=== PATIENT | female | born 1980 | race Caucasian/White ===

== ENCOUNTER 2021-03-28 12:59 | Emergency (ER) | payer OTHER ==
[~2021-03-28] VITALS: Ht 158.8 cm; Wt 84.4 kg
[2021-03-28 13:15] VITALS: BP 126/62
--- NOTE | 2021-03-28 13:25 | NUR ---
PATIENT AMBULATED TO BED 1.
--- NOTE | 2021-03-28 13:37 | NUR ---
41 Y/O FEMALE C/O EPIGASTRIC PAIN 02/24 DESCRIBES BURNING X 3 DAYS. DENIES FEVER/CHILLS. STATES +N/-V. ABD IS SOFT, ROUND, NON-TENDER, BOWEL SOUNDS ACTIVE X4, LAST BM 03/27/21. DENIES PMH NKA
--- NOTE | 2021-03-28 13:55 | NUR ---
DR. GOODMAN AT PT BEDSIDE FOR FURTHER EVALUATION.
--- NOTE | 2021-03-28 13:58 | NUR ---
RUBBER MIXER AT PT BEDSIDE.
[2021-03-28] MEDS ORDERED: FAMOTIDINE 20 MG TAB PO ONE (14:10)
[2021-03-28 14:17] LABS: BASOPHILS % (AUTO) 0.5 % (0.0-2.0); EOSINOPHILS # (AUTO) 0.2 K/uL (0-0.4); EOSINOPHILS % (AUTO) 1.9 % (0.0-4.0); HEMATOCRIT 39.7 % (36-48); HEMOGLOBIN 13.3 g/dL (12.0-16.0); LYMPHOCYTES # (AUTO) 2.2 K/uL (2.5-16.5); LYMPHOCYTES % (AUTO) 23.1 % (20.5-51.1); MEAN CORPUSCULAR HEMOGLOBIN 30 pg (27-31); MEAN CORPUSCULAR HGB CONC 34 g/dL (33-37); MEAN CORPUSCULAR VOLUME 88.9 fL (80-94); MONOCYTES # (AUTO) 0.8 K/uL (0.8-1.0); MONOCYTES % (AUTO) 8.7 % (1.7-9.3); NEUTROPHILS # (AUTO) 6.2 K/uL (1.8-7.7); NEUTROPHILS % (AUTO) 65.8 % (42.2-75.2); PLATELET COUNT (AUTO) 200 K/uL (140-450); RED BLOOD CELL COUNT(AUTO) 4.47 MIL/uL (4.20-5.40); RED CELL DISTRIBUTION WIDTH 13.5 % (11.6-13.7); WHITE BLOOD COUNT (AUTO) 9.4 K/uL (4.8-10.8)
--- NOTE | 2021-03-28 14:23 | NUR ---
US AT PT BEDSIDE.
[2021-03-28 14:35] LABS: ALBUMIN 3.9 g/dL (3.4-5.0); ANION GAP 11.6 (8-16); CARBON DIOXIDE 28.1 mmol/L (21-32); CREATININE 0.5 mg/dL (0.6-1.3); POTASSIUM 3.7 mmol/L (3.5-5.1); TOTAL BILIRUBIN 0.8 mg/dL (0.0-1.0)
[2021-03-28 15:03] LABS: APPEARANCE,URINE CLEAR (CLEAR); BILIRUBIN,URINE NEGATIVE (NEGATIVE); BLOOD, URINE NEGATIVE (NEGATIVE); COLOR,URINE YELLOW (YELLOW); LEUKOCYTE ESTERASE ,URINE NEGATIVE (NEGATIVE); NITRITE, URINE NEGATIVE (NEGATIVE); UGLUCOSE NEGATIVE (NEGATIVE)
[2021-03-28] MEDS ORDERED: FAMO-92 PO (15:13)
[2021-03-28] MEDS ORDERED: ACET-2619 PO (15:14)
[2021-03-28] MEDS ORDERED: ONDA-188 PO (15:14)
--- NOTE | 2021-03-28 15:15 | NUR ---
PT RESTING IN BED, VSS, WILL CONTINUE TO MONITOR.
[2021-03-28 15:21] VITALS: BP 120/74
--- NOTE | 2021-03-28 15:23 | NUR ---
Patient discharged with v/s stable. Written and verbal after care instructions given FOR ABD OAIN and explained. Patient alert, oriented and verbalized understanding of instructions. Ambulatory with steady gait. All questions addressed prior to discharge. ID band removed. Patient advised to follow up with PMD. Rx of PEPCID, TYNENOL, AND ZOFRAN given. Patient educated on indication of medication including possible reaction and side effects. Opportunity to ask questions provided and answered.
== END 2021-03-28 15:23 | disposition home or self-care (01) ==
LOC: MED 12:59
DX: R10.13 Epigastric pain (principal); R11.0 Nausea; F43.9 Reaction to severe stress, unspecified; Z98.890 Other specified postprocedural states
CPT/HCPCS: 36415; 76705; 80053; 81003; 81025; 83690; 85025; 99284; Q0092

== ENCOUNTER 2023-05-24 10:56 | Emergency (ER) | payer OTHER ==
[~2023-05-24] VITALS: Ht 157.5 cm; Wt 86.2 kg
[~2023-05-24 10:56] MED LIST: ACET-2619 PO; FAMO-92 PO; MECL-303 PO; ONDA-188 PO; ONDA-188 SL
[2023-05-24 11:13] VITALS: BP 147/87; PULSE 88; RESP 20; TEMP 97.6; O2SAT 100
[2023-05-24] MEDS ORDERED: SULF-59 PO (12:10)
== END 2023-05-24 12:27 | disposition home or self-care (01) ==
LOC: MED 10:56
DX: N61.0 Mastitis without abscess (principal); Z79.899 Other long term (current) drug therapy; Z79.2 Long term (current) use of antibiotics
CPT/HCPCS: 99282